=== PATIENT | male | born 1945 | race Caucasian/White ===

== ENCOUNTER 2020-10-19 12:03 | Emergency (ER) | payer MEDICARE, BC ==
[~2020-10-19] VITALS: Ht 165.1 cm; Wt 80.9 kg
--- NOTE | 2020-10-19 12:31 | NUR ---
PT C/O SPOTS OF BLOOD ON TOILET PAPER AFTER BM. HX CONSIPATION. NO REGULAR STOOL SOFTENERS. PT CONNECTED TO MONITORING. CALL LIGHT IN REACH.
--- NOTE | 2020-10-19 12:47 | NUR ---
THIS RN AT BEDSIDE WITH MD DURING RECTAL EXAM.
[2020-10-19 13:21] LABS: BASOPHILS % (AUTO) 1 % (0-1); EOSINOPHILS % (AUTO) 2 % (1-7); LYMPHOCYTES % (AUTO) 18 % (22-44); MEAN CORPUSCULAR HEMOGLOBIN 29.8 pg (27.5-34.5); MEAN CORPUSCULAR HGB CONC 33.5 g/dL (33.2-36.2); MEAN PLATELET VOLUME 7.4 fL (7.4-10.4); MONOCYTES % (AUTO) 10 % (2-9); NEUTROPHILS % (AUTO) 69 % (42-75); PLATELET COUNT 240 x10^3/uL (130-400); RED BLOOD COUNT 5.05 x10^6/uL (4.38-5.82); RED CELL DISTRIBUTION WIDTH 13.6 % (9.4-14.8)
[2020-10-19 13:30] LABS: INTERNATIONAL NORMALIZED RATIO 1.04 (0.93-1.1)
[2020-10-19 13:31] LABS: MD NO
[2020-10-19 13:33] LABS: ALANINE AMINOTRANSFERASE 30 U/L (12-78); ALBUMIN 3.5 g/dL (3.4-5.0); ANION GAP 6 mmol/L (5-15); CALCIUM 9.1 mg/dL (8.5-10.1); CHLORIDE 109 mmol/L (98-107); CREATININE 1.02 mg/dL (0.7-1.3)
[2020-10-19 13:35] LABS: ALKALINE PHOSPHATASE 80 U/L (45-117); BILIRUBIN,TOTAL 0.3 mg/dL (0.2-1.0); TOTAL PROTEIN 7.4 g/dL (6.4-8.2)
--- NOTE | 2020-10-19 13:58 | NUR ---
ALL RESULTS ARE BACK AT THIS TIME. CHART UP FOR RECHECK.
[2020-10-19 14:23] VITALS: BP 138/86
--- NOTE | 2020-10-19 14:24 | NUR ---
YESSICA RN: RT STABLE FOR DISCHARGE TO HOME, VITALS STABLE, EDUCATION PROVIDED, VERBALIZES UNDERSTANDING, AMBULATES W/ STEADY GAIT TO FRONT LOBBY WITH PERSONAL BELONGINGS.
== END 2020-10-19 14:26 | disposition home or self-care (01) ==
LOC: ED 12:26
DX: K64.8 Other hemorrhoids (principal); R10.2 Pelvic and perineal pain; R19.7 Diarrhea, unspecified; H54.7 Unspecified visual loss; K59.00 Constipation, unspecified; K21.9 Gastro-esophageal reflux disease without esophagitis
CPT/HCPCS: 36415; 80053; 83605; 85025; 85610; 85730; 99283